=== PATIENT | female | born 1945 | race Hispanic/Latino ===

== ENCOUNTER 2021-04-28 20:19 | Inpatient (IN) | payer MEDICARE ==
[~2021-04-28] VITALS: Ht 152.4 cm; Wt 54.7 kg
[2021-04-28] MEDS ORDERED: Vancomycin IV 1 GM in SODIUM CHLORIDE 0.9% 250ML 250 ML IV SCH (20:30)
[2021-04-28] MEDS: CEFEPIME 1 GM in SODIUM CHLORIDE 0.9% 50ML 50 ML IV SCH (20:30)
[2021-04-28 20:50] LABS: BASOPHILS % 0.5 % (0.0-1.0); EOSINOPHILS # (AUTO) 0.1 (0.0-0.4); EOSINOPHILS % 0.9 % (0.0-6.0); HEMATOCRIT 40.3 % (34.2-44.1); HEMOGLOBIN 13.1 g/dL (12.0-16.0); LYMPHOCYTES # (AUTO) 2.3 (1.0-3.2); LYMPHOCYTES % 26.5 % (18.0-39.1); MEAN CORPUSCULAR HEMOGLOBIN 27.9 pg (28-32); MEAN CORPUSCULAR HGB CONC 32.5 g/dL (31-35); MEAN CORPUSCULAR VOLUME 85.9 fL (81-99); MONOCYTES # (AUTO) 0.6 (0.2-0.8); MONOCYTES % 6.7 % (4.4-11.3); NEUTROPHILS # (AUTO) 5.7 (2.1-6.9); NEUTROPHILS % 65.2 % (38.7-80.0); PLATELET COUNT 290 x10e3/uL (140-360); RED BLOOD COUNT 4.69 x10e6/uL (3.6-5.1); RED CELL DISTRIBUTION WIDTH 15.3 % (11.7-14.4)
[2021-04-28 21:05] LABS: ANION GAP 21.9 mmol/L (8-16); CREATININE, SERUM 1.16 mg/dL (0.57-1.11); POTASSIUM 3.9 mmol/L (3.5-5.1)
[2021-04-28] MEDS ORDERED: Vancomycin IV 1 GM in SODIUM CHLORIDE 0.9% 250ML 250 ML IV ONE (21:15)
[2021-04-28] MEDS ORDERED: ACETAMINOPHEN 325 MG TAB PO PRN (21:30)
[2021-04-28] MEDS ORDERED: SODIUM CHLORIDE FLUSH 10 ML SYR INJ PRN (21:30)
[2021-04-28] MEDS ORDERED: DEXTROSE 50% SYRINGE 50 ML IV PRN (21:30)
[2021-04-28 23:20] VITALS: BP 134/53
[2021-04-29] VITALS (10 sets, daily range): BP systolic 131–148; BP diastolic 53–83
[2021-04-29] MEDS: CEFEPIME 1 GM in SODIUM CHLORIDE 0.9% 50ML 50 ML IV SCH ×4 (00:17→21:47)
[2021-04-29] MEDS ORDERED: ATORVASTATIN CA40 MG (00:41)
[2021-04-29] MEDS ORDERED: METFORMIN HCL500 M1 (00:41)
[2021-04-29] MEDS ORDERED: PIOGLITAZONE15 MG (00:41)
[2021-04-29] MEDS ORDERED: FEROSUL325 MG (00:41)
[2021-04-29] MEDS ORDERED: BACLOFEN10 MG (00:41)
[2021-04-29] MEDS ORDERED: ISOSORBIDE MONO60 MG (00:41)
[2021-04-29] MEDS ORDERED: VASCEPA1 GM (00:41)
[2021-04-29] MEDS ORDERED: AMLODIPINE BESY10 MG (00:41)
[2021-04-29] MEDS ORDERED: LOSARTAN POTAS100 MG (00:41)
[2021-04-29] MEDS ORDERED: JARDIANCE10 MG (00:41)
[2021-04-29] MEDS ORDERED: CLOPIDOGREL75 MG (00:41)
[2021-04-29] MEDS ORDERED: CARVEDILOL25 MG (00:41)
[2021-04-29] MEDS ORDERED: HYDROCHLOROTHIA25 MG PO (00:42)
[2021-04-29 05:01] LABS: BASOPHILS % 0.5 % (0.0-1.0); EOSINOPHILS # (AUTO) 0.1 (0.0-0.4); EOSINOPHILS % 1.4 % (0.0-6.0); HEMATOCRIT 38.3 % (34.2-44.1); HEMOGLOBIN 12.1 g/dL (12.0-16.0); LYMPHOCYTES % 34.5 % (18.0-39.1); MEAN CORPUSCULAR HEMOGLOBIN 27.3 pg (28-32); MEAN CORPUSCULAR HGB CONC 31.6 g/dL (31-35); MEAN CORPUSCULAR VOLUME 86.5 fL (81-99); MONOCYTES # (AUTO) 0.7 (0.2-0.8); MONOCYTES % 7.7 % (4.4-11.3); NEUTROPHILS # (AUTO) 4.8 (2.1-6.9); NEUTROPHILS % 55.4 % (38.7-80.0); PLATELET COUNT 262 x10e3/uL (140-360); RED BLOOD COUNT 4.43 x10e6/uL (3.6-5.1); RED CELL DISTRIBUTION WIDTH 15.2 % (11.7-14.4)
[2021-04-29 05:24] LABS: ALBUMIN 3.8 g/dL (3.5-5.0); ALBUMIN/GLOBULIN RATIO 1.2 (0.8-2.0); ANION GAP 16.5 mmol/L (8-16); CALCIUM 9.2 mg/dL (8.4-10.2); CREATININE, SERUM 0.97 mg/dL (0.57-1.11); POTASSIUM 3.5 mmol/L (3.5-5.1)
[2021-04-29] MEDS ORDERED: DOCUSATE SODIUM 100 MG CAP PO PRN (06:15)
[2021-04-29] MEDS ORDERED: ONDANSETRON HCL INJ 2MG/ML 2ML 2 MG/ML VIAL IV PRN (06:15)
[2021-04-29] MEDS: INSULIN REGULAR, HUMAN 100 UNIT/1 ML SQ SCH ×4 (07:30→21:18)
[2021-04-29 08:48] LABS: CHOL/HDL RATIO 3.7 (3.0-3.6)
[2021-04-29] MEDS: ISOSORBIDE DINITRATE 20 MG TAB PO SCH ×3 (09:47→21:00)
[2021-04-29] MEDS: CLOPIDOGREL BISULFATE 75 MG TAB PO SCH (09:58)
[2021-04-29] MEDS: AMLODIPINE BESYLATE 5 MG TAB PO SCH (09:58)
[2021-04-29] MEDS: ACETAMINOPHEN 325 MG TAB PO PRN ×2 (13:37→22:34)
[2021-04-29] MEDS ORDERED: SODIUM CHLORIDE 0.9% 250ML 250 ML ONE (16:27)
[2021-04-29] MEDS: ATORVASTATIN 40 MG TAB PO SCH (21:00)
[2021-04-29] MEDS: Vancomycin IV 1 GM in SODIUM CHLORIDE 0.9% 250ML 250 ML IV SCH (22:00)
[2021-04-30] VITALS (11 sets, daily range): BP systolic 146–181; BP diastolic 61–73
[2021-04-30] MEDS: CEFEPIME 1 GM in SODIUM CHLORIDE 0.9% 50ML 50 ML IV SCH ×3 (06:00→22:00)
[2021-04-30] MEDS: INSULIN REGULAR, HUMAN 100 UNIT/1 ML SQ SCH ×4 (07:30→21:00)
[2021-04-30] MEDS ORDERED: ONDANSETRON HCL 4 MG ORAL DISINTEGRATING TAB PO PRN (08:45)
[2021-04-30] MEDS ORDERED: MIDAZOLAM HCL 2 MG/2 ML VIAL ONE (10:01)
[2021-04-30] MEDS ORDERED: IOPAMIDOL 300MG/ML 100 ML INFUS..BTL IV ONE (10:02)
[2021-04-30] MEDS ORDERED: SODIUM CHLORIDE 0.9% 1000ML 1,000 ML ONE (10:02)
[2021-04-30] MEDS ORDERED: LIDOCAINE HCL 2% LOCAL 20 ML VIAL ONE (10:02)
[2021-04-30] MEDS ORDERED: HEPARIN SOD/SOD CHLORIDE 2,000 ML ONE (10:02)
[2021-04-30] MEDS ORDERED: FENTANYL CITRATE/PF 100MCG/2 ML INJ ONE (10:02)
[2021-04-30] MEDS: AMLODIPINE BESYLATE 5 MG TAB PO SCH (13:14)
[2021-04-30] MEDS: ISOSORBIDE DINITRATE 20 MG TAB PO SCH ×3 (13:14→21:00)
[2021-04-30] MEDS: CLOPIDOGREL BISULFATE 75 MG TAB PO SCH (14:39)
[2021-04-30] MEDS: ATORVASTATIN 40 MG TAB PO SCH (21:00)
[2021-04-30] MEDS: Vancomycin IV 1 GM in SODIUM CHLORIDE 0.9% 250ML 250 ML IV SCH (22:00)
[2021-04-30] MEDS: NIFEDIPINE CR 30 MG TAB PO SCH (22:54)
[2021-05-01 01:25] VITALS: BP 153/113
[2021-05-01] MEDS: ACETAMINOPHEN 325 MG TAB PO PRN (05:30)
[2021-05-01] MEDS: CEFEPIME 1 GM in SODIUM CHLORIDE 0.9% 50ML 50 ML IV SCH (05:48)
[2021-05-01 05:50] VITALS: BP 141/73
[2021-05-01] MEDS ORDERED: ISORDIL20 MG PO (07:28)
[2021-05-01] MEDS ORDERED: NIFEDIPINE ER30 M1 PO (07:28)
[2021-05-01] MEDS ORDERED: DOXYCYCLINE HY100 MG PO (07:28)
[2021-05-01] MEDS ORDERED: LEVOFLOXACIN500 MG PO (07:28)
[2021-05-01] MEDS: INSULIN REGULAR, HUMAN 100 UNIT/1 ML SQ SCH (07:30)
[2021-05-01 08:00] VITALS: BP 140/93
[2021-05-01] MEDS: CLOPIDOGREL BISULFATE 75 MG TAB PO SCH (08:30)
[2021-05-01] MEDS: NIFEDIPINE CR 30 MG TAB PO SCH (08:30)
[2021-05-01 08:33] VITALS: BP 140/93
[2021-05-01 08:40] VITALS: BP 140/93
[2021-05-01] MEDS ORDERED: AMLODIPINE BESYLATE 10 MG TAB PO SCH (09:00)
[2021-05-01] MEDS ORDERED: ISOSORBIDE DINITRATE 20 MG TAB PO SCH (09:00)
[2021-05-01] MEDS ORDERED: MUPIROCIN 2% OINT 22 GM TUBE TOP SCH (09:00)
[2021-05-01 11:43] VITALS: BP 161/82
== END 2021-05-01 12:00 | disposition home or self-care (01) | DRG 300 ==
LOC: ER 20:27 → ERHOLD 21:29 → MED/SURG2 23:30
PROVIDERS: ADMIT Internal Medicine; ATTEND Internal Medicine
PROC: B41D1ZZ Fluoroscopy of Aorta and Bilateral Lower Extremity Arteries using Low Osmolar Contrast (ICD-10-PCS; principal; 2021-04-30)
DX: E11.51 Type 2 diabetes mellitus with diabetic peripheral angiopathy without gangrene (principal); L03.115 Cellulitis of right lower limb; Z79.899 Other long term (current) drug therapy; L03.031 Cellulitis of right toe; Z87.891 Personal history of nicotine dependence; E78.5 Hyperlipidemia, unspecified; M79.7 Fibromyalgia; I70.298 Other atherosclerosis of native arteries of extremities, other extremity; Z20.822 Contact with and (suspected) exposure to COVID-19
CPT/HCPCS: 36247; 36415; 75625; 75716; 80053; 80061; 82948; 83036; 85025; 87040; 93925; 94799; 99152; 99153; 99251; 99284; C1769; J0692; J1817; J2001; J2250; J3010; J3370; J7030; J7050; Q9967; U0002